=== PATIENT | male | born 1965 | race Caucasian/White ===

== ENCOUNTER 2020-10-05 13:32 | Emergency (ER) | payer OTHER ==
[~2020-10-05 13:32] MED LIST: ALBUTEROL1.25 MG/3 NEB; AMOXICILLIN875 MG PO; ATROVENT HFA12.9 GM INH; BROMFED DM COU473 ML PO; COMBIVENT RESPIM4 GM INH; DEBROX15 ML AU; DULERA 200 MCG8.8 GM INH; IBU800 MG PO; KEFLEX250 MG PO; NEBULIZER UNIT NEB; NORCO 7.5-3251 EACH PO; SEROQUEL 50MG T50 MG PO; TESSALON PERLE100 MG PO; ULTRAM50 MG PO; VENTOLIN HFA IN18 GM INH; VOLTAREN100 GM TOP
[2020-10-05 14:57] LABS: BASOPHIL 1.1 % (0-2); EOSINOPHIL 2.3 % (0-5); HCT 52.8 % (42.0-52.0); HGB 18.2 g/dl (13.2-18.0); LYMPHOCYTE 22.8 % (15-48); MCH 31.8 pg (25.0-31.0); MCHC 34.5 g/dL (32.0-36.0); MCV 92.1 fL (78.0-100.0); MONOCYTE 13.1 % (0-12); MPV 9.4 fL (6.0-9.5); NEUTROPHIL 60.4 % (41-80); NRBC 0; PLT 231 K/uL (150-400); RBC 5.73 M/uL (4.70-6.00); RDW 11.8 % (11.5-14.0); WBC 9.2 K/uL (4.0-10.5)
[2020-10-05 15:10] LABS: BILIRUBIN - TOTAL 0.7 mg/dL (0.2-1.0); BUN/CREAT RATIO (CALC) 10.6 RATIO; CREATININE 1.23 mg/dL (0.67-1.17); GLOBULIN (CALCULATION) 3.8 g/dL; TOTAL PROTEIN 7.8 g/dL (6.4-8.2)
[2020-10-05 15:56] LABS: BILIRUBIN NEGATIVE (NEGATIVE); BLOOD NEGATIVE Ery/uL (NEGATIVE); CLARITY CLEAR (CLEAR); COLOR YELLOW (YELLOW); GLUCOSE (U) NORMAL (NORMAL); LEUKOCYTES NEGATIVE Leu/uL (NEGATIVE); NITRITE NEGATIVE (NEGATIVE); PROTEIN NEGATIVE (NEGATIVE); UROBILINOGEN 0.2 mg/dL (0.2-1.0)
[2020-10-05 16:00] LABS: MARIJUANA (THC) NEGATIVE (NEGATIVE)
[2020-10-05 16:01] LABS: AMPHETAMINES POSITIVE (NEGATIVE); BARBITURATES NEGATIVE (NEGATIVE); ECSTASY (MDMA) NEGATIVE (NEGATIVE); METHADONE NEGATIVE (NEGATIVE); OPIATES NEGATIVE (NEGATIVE); OXYCODONE NEGATIVE (NEGATIVE)
== END 2020-10-05 17:18 | disposition home or self-care (01) ==
LOC: FER 13:32
PROVIDERS: Nurse Practitioner Family
DX: I95.1 Orthostatic hypotension (principal); F19.90 Other psychoactive substance use, unspecified, uncomplicated; J45.909 Unspecified asthma, uncomplicated; F17.210 Nicotine dependence, cigarettes, uncomplicated; Z86.19 Personal history of other infectious and parasitic diseases
CPT/HCPCS: 36415; 70450; 80053; 80305; 81003; 85025; 93005; G0480; J7030